=== PATIENT | male | born 1980 | race Caucasian/White ===

== ENCOUNTER 2019-08-02 00:31 | Emergency (ER) | payer SELFPAY ==
[~2019-08-02] VITALS: Ht 172.7 cm; Wt 77.0 kg
[2019-08-02] MEDS ORDERED: IBUPROFEN 600MG TABLET PO STA (01:21)
[2019-08-02] MEDS ORDERED: TETRACAINE 0.5% OPHTH DROPS 4ML RIGHTEYE ONE (01:30)
[2019-08-02] MEDS ORDERED: FLUORESCEIN SODIUM 1MG/STRIP RIGHTEYE ONE (01:30)
[2019-08-02] MEDS ORDERED: BALANCED SALT IRRIG SOLN 15ML TOP ONE (01:30)
[2019-08-02 03:26] VITALS: BP 125/74
== END 2019-08-02 03:27 | disposition home or self-care (01) ==
LOC: ER 00:56
DX: S00.11XA Contusion of right eyelid and periocular area, initial encounter (principal); W22.8XXA Striking against or struck by other objects, initial encounter; Y93.89 Activity, other specified; Y92.89 Other specified places as the place of occurrence of the external cause; Y99.8 Other external cause status
CPT/HCPCS: 99284

== ENCOUNTER 2020-02-03 10:08 | Emergency (ER) | payer MEDICAID ==
[~2020-02-03] VITALS: Ht 172.7 cm; Wt 86.0 kg
[2020-02-03 10:11] VITALS: BP 124/94
== END 2020-02-03 11:18 | disposition home or self-care (01) ==
LOC: ER 10:53
DX: H00.015 Hordeolum externum left lower eyelid (principal)
CPT/HCPCS: 99282